=== PATIENT | male | born 1935 | race Caucasian/White ===

== ENCOUNTER → 2016-06-23 | Outpatient (CLI) | payer BC ==
[~2016-06-23] MED LIST: ASPI81TA28 PO; CEPH500C PO; HYDR12.55 PO; LISI-725 PO; TRAM-10 PO; XRL10 PO
--- NOTE | 2016-06-23 12:28 | DIAGNOSTIC IMAGING REPORT ---
RIGHT HEEL MIN 2 VIEWS CLINICAL HISTORY: Right heel pain COMPARISON: None. DISCUSSION: No fractures are visualized. No destructive lesions are evident. There is a tiny plantar calcaneal spur. There are vascular calcifications present. IMPRESSION: No evidence of fracture. Tiny plantar calcaneal spur. Electronically signed by: Taco Ryan M.D. 06/23/2016 12:26 PM Dictated Date/Time: 06/23/2016 12:26 PM
== END | disposition home or self-care (01) ==
LOC: C.RADBC 12:10
PROVIDERS: ATTEND Nurse Practitioner Family
DX: M77.31 Calcaneal spur, right foot (principal)

== ENCOUNTER 2016-12-12 17:38 | Emergency (ER) | payer BC ==
[~2016-12-12] VITALS: Ht 182.9 cm; Wt 83.6 kg
[~2016-12-12 17:38] MED LIST changes: -CEPH500C PO
[2016-12-12 17:48] VITALS: TEMP 36.7; Ht 182.9 cm; Wt 83.6 kg
[2016-12-12] MEDS ORDERED: XYLOCAINE 1%/SOD BICARB 20 ML VIAL INFIL STA (18:36)
[2016-12-12] MEDS ORDERED: HYDROCODONE/ACETAMOPHEN 5/325MG TAB PO STA (18:36)
--- NOTE | 2016-12-12 19:14 | DIAGNOSTIC IMAGING REPORT ---
LEFT INDEX FINGER 3 VIEWS CLINICAL HISTORY: Left 2nd finger trauma PAIN. COMPARISON: None. DISCUSSION: There is an intra-articular fracture involving the radial base the proximal phalanx. The fracture fragment measures 7 mm and is essentially nondisplaced. There is overlying soft tissue laceration. There are moderate arthritic changes at the level of the proximal to phalangeal joint. There is a 4 mm foreign body located within the volar soft tissues at the level of the second metacarpal. IMPRESSION: 1. Acute intra-articular fracture involving the base of the proximal phalanx 2. Overlying soft tissue laceration 3. Arthritic changes the level the proximal to phalangeal joint 4. 4 mm foreign body located anterior to the second metacarpal Electronically signed by: Taco Ryan M.D. 12/12/2016 7:13 PM Dictated Date/Time: 12/12/2016 7:10 PM
[2016-12-12] MEDS ORDERED: CEFAZOLIN SOD 1000MG/55 ML D5W IV STA (19:20)
[2016-12-12 19:50] LABS: ISTAT CREATININE 1.1 mg/dl (0.6-1.3); ISTAT IONIZED CALCIUM 1.14 mmol/l (1.12-1.32)
--- NOTE | 2016-12-12 20:22 | EMERGENCY ROOM VISIT NOTE ---
ED Visit Note First contact with patient: 18:31 This Patient was discussed with the physician Weighter, Michele Manuel PA-C. The pertinent historical and physical exam findings were confirmed. I agree with the studies ordered and with the interpretations of these studies. I agree with the disposition and care plan.
[2016-12-12] MEDS ORDERED: CEPH500C PO (20:23)
--- NOTE | 2016-12-12 20:24 | EMERGENCY ROOM VISIT NOTE ---
ED Visit Note First contact with patient: 18:31 Chief Complaint: "Laceration left index finger". History of Present Illness: This patient is a 80-year-old male who presents to the Emergency Department via private vehicle for evaluation of their left second digit laceration. Patient sustained the laceration while attending to operate a crossbow, when his finger was underneath the string when it discharged and struck and lacerated the dorsal aspect of his left second digit just distal to the MCP joint. They report a moderate amount of bleeding initially. They deny any numbness or tingling into the distal extremity. They report some decreased range of motion of the affected digit, with clicking at the PIP joint. Patient rates his current discomfort as a 4/10. Patient's Tetanus status is believed to be currently up-to-date. Medications: As noted below Allergies: None PMH: No pertinent SHx: Patient lives locally with . ROS: All pertinent positive and negative review of systems are appropriately documented in the History of Present Illness. Physical Exam: VITAL SIGNS - Vital signs and nursing notes were reviewed. Stable. Slightly hypertensive. I believe secondary to pain. GENERAL -80-year-old male appearing his stated age who is in no acute distress. Communicates well with provider and answers questions appropriately. SKIN - There is a 3 cm long laceration noted dorsal aspect of the left second digit between the MCP and PIP joint. The edges gape apart with traction. No foreign bodies appreciated. Upon further examination there are deep structures including vessel, tendon, and bony structures appreciated. The tendon for the extensor surface of the left second digit is visible between the PIP and MCP joints. This appears to move freely without laceration. There is no active bleeding noted. MUSCULOSKELETAL - Laceration as described above. +5/5 strength appreciated of the affected digit. There is some clicking noted with flexion of the left second digit at the PIP joint. He is able to fully extend. NEUROLOGIC - Spinothalamic tract was found to be intact with ability to discriminate sharp versus dull sensation. No sensory defects of the dorsal column were appreciated utilizing light touch for evaluation. VASCULAR - Capillary refill was brisk. IMAGING: LEFT INDEX FINGER 3 VIEWS CLINICAL HISTORY: Left 2nd finger trauma PAIN. COMPARISON: None. DISCUSSION: There is an intra-articular fracture involving the radial base the proximal phalanx. The fracture fragment measures 7 mm and is essentially nondisplaced. There is overlying soft tissue laceration. There are moderate arthritic changes at the level of the proximal to phalangeal joint. There is a 4 mm foreign body located within the volar soft tissues at the level of the second metacarpal. IMPRESSION: 1. Acute intra-articular fracture involving the base of the proximal phalanx 2. Overlying soft tissue laceration 3. Arthritic changes the level the proximal to phalangeal joint 4. 4 mm foreign body located anterior to the second metacarpal Electronically signed by: Taco Ryan M.D. 12/12/2016 7:13 PM Dictated Date/Time: 12/12/2016 7:10 PM ED Course: Patient was seen and evaluated by myself. Risks and benefits of performing primary wound closure versus no repair were discussed with the patient who verbalizes understanding. Verbal consent was obtained prior to performing the procedure. 6 cc of 1% buffered lidocaine was used to perform local anesthetization of the left second digit. The wound was cleansed and prepped in the typical sterile fashion utilizing normal saline and Betadine. The wound was sterilely draped. Once proper anesthetization was established, the wound was further examined and demonstrated deep involvement. X-ray was obtained with results as above. Acute fracture noted. I discussed the case with on-call orthopedics, Dr. Tidwell. We initiated 1 g of Ancef, and he recommended being discharged home on Keflex 5 days. Splint was recommended. He is to follow-up with Dr. Tidwell by calling the office tomorrow and be seen likely sometime near Sunday. I did discuss with him the clicking in the patient's joint. The extensor tendon does not appear to be lacerated and he was able to fully extend , flexion was slightly difficult. Foreign body noted on x-ray, and I thoroughly irrigated the wound and was unable to identify on exam any foreign body within the wound. The wound was copiously irrigated with normal saline and Betadine. The wound was closed using 7 simple, 5-0 nylon sutures with the wound edges being well approximated. Patient tolerated the procedure well. Patient's lab does reveal elevated BUN 21, he is to follow up regarding this. No complications were met. The wound was cleansed and dressed with a Bacitracin dressing. A metal splint was applied to the finger for comfort. Keflex prescription written. Patient educated on worrisome symptoms for return visit to the Emergency Department. Patient discharged to home in good condition. Medication list reviewed. Blood pressure elevated, I believe to be situational. In the evaluation and treatment of this patient, the following differential diagnoses were considered: Finger Fracture, Finger Dislocation, Finger Sprain, Finger Contusion, Jersey Finger, or Mallet Finger. Pt. was called in the afternoon on 12/13/16 to clarify typographical air in his discharge instructions. I indicated in this that 7 days is how long he is to wait to have these removed. This was clarified to wait 12-14 days. Thorough discussion was also had regarding the small foreign body that was identified on xray, but not appreciated on exam. He is to discuss this with the orthopedic surgeon on his visit that he has Sunday. Problem List Medical Problems: (1) HTN (hypertension) Status: Chronic Current/Historical Medications Scheduled Aspirin (Aspirin Ec), 81 MG PO DAILY Cephalexin Monohydrate (Keflex), 500 MG PO QID Hydrochlorothiazide (Hydrochlorothiazide), 12.5 MG PO DAILY Lisinopril (Zestril), 20 MG PO DAILY Allergies Coded Allergies: No Known Allergies (Unverified , 12/12/16) Vital Signs Date Time Temp Pulse Resp B/P (MAP) Pulse Ox O2 Delivery O2 Flow Rate FiO2 12/12/16 20:35 60 18 153/92 95 12/12/16 18:54 64 18 162/94 95 Room Air 12/12/16 17:48 36.7 75 18 149/84 96 Room Air Laboratory Results Test 12/12/16 19:31 Bedside Hemoglobin 15.0 g/dl (14.0-18.0) Bedside Hematocrit 44 % (42-52) Bedside Sodium 135 mEq/L (135-144) Bedside Potassium 3.8 mEq/L (3.3-5.0) Bedside Chloride 96 mEq/L (101-112) Bedside Total CO2 24 mEq/l (24-31) Anion Gap 19.0 mmol/L (16-25) Bedside Blood Urea Nitrogen 21 mg/dl (7-18) Bedside Creatinine 1.1 mg/dl (0.6-1.3) Bedside Glucose (other) 92 mg/dl (70-99) Bedside Ionized Calcium (Harman) 1.14 mmol/l (1.12-1.32) Medications Administered Medications (Trade) Dose Ordered Sig/Phillip Route Start Time Stop Time Status Last Admin Dose Admin Acetaminophen/ Hydrocodone Bitart ([place] 5/325 Tab) 1 tab NOW STAT PO 12/12/16 18:36 12/12/16 18:39 DC 12/12/16 18:53 1 TAB Cefazolin Sodium (Ancef 1000mg/55 ml D5W) 1,000 mg NOW STAT IV 12/12/16 19:20 12/12/16 19:21 DC 12/12/16 19:38 1,000 MG Departure Information Impression Primary Impression: Laceration Additional Impression: Finger fracture, left Dispostion Home / Self-Care Condition GOOD Prescriptions Cephalexin Monohydrate (Keflex) 500 Mg Cap 500 MG PO QID for 5 Days, #20 CAP Prov: Michele Manuel PA-C 12/12/16 Referrals Terrell Dupree M.D. (PCP) Jono Tidwell M.D. Patient Instructions My [facility] Additional Instructions Discharge Instructions: You have received 7 sutures on your finger. These sutures are NOT dissolvable and WILL need to be removed by a health care provider in 7 days. You can return to the Emergency Department or contact your Primary Care Provider to have the sutures removed. Please wear the splint for comfort until the sutures are removed. Please follow-up with Dr. Tidwell, by calling his office tomorrow. Proper wound care is essential for adequate wound healing and infection prevention. You can shower and clean the wound with soap and water. Do not scour over the wound, pat dry with a towel. Do not submerse the wound (i.e. bathe or dish wash) until the sutures have been removed. You can use an antibiotic ointment with a dressing over the wound for the next 3-4 days. After this time you may leave the wound dry and open to the air. If crust develops over the wound you can use a Q-tip to apply a 1:1 peroxide:water solution to clean the wound. Look for signs of infection of the wound including: increased pain, swelling, foul discharge, streaking, or increased temperature. If any of these are noticed you should return to the Emergency Department for further assessment and treatment. As with any laceration you may have received nerve damage to the surrounding tissues. This damage may or may not be permanent. You should keep the area covered with sunscreen for the first 6 months to 1 year when at risk for exposure to help minimize scarring. You can also use scar reducing creams or Vitamin E oil to help minimize scarring. For pain control, you can use the following [id number] medicines (if >12 yo): - Regular strength (325mg/tab) Tylenol (acetaminophen) 2 tabs every 4-6 hours as needed. Do not exceed 12 tablets in a 24 hour period. Avoid taking more than 3 grams (3000 mg) of Tylenol per day. This includes any other sources of acetaminophen you may take on a regular basis. - Regular strength (200 mg/tab) Advil (ibuprofen) 1-2 tabs every 4-6 hours as needed. Do not exceed a dose of 3200 mg per day. Return to the emergency department if your symptoms worsen despite treatment course outlined above. Please return with any new/concerning symptoms. Problem Qualifiers
[2016-12-12 20:35] VITALS: BP 153/92; PULSE 60; O2SAT 95
== END 2016-12-12 20:35 | disposition home or self-care (01) ==
LOC: C.EDB 17:39 → C.EDD 20:35
DX: S61.211A Laceration without foreign body of left index finger without damage to nail, initial encounter (principal); X58.XXXA Exposure to other specified factors, initial encounter; I10 Essential (primary) hypertension; Z79.82 Long term (current) use of aspirin

== ENCOUNTER → 2017-02-12 | Outpatient (CLI) | payer BC ==
[~2017-02-12] MED LIST changes: -TRAM-10 PO; -XRL10 PO
--- NOTE | 2017-02-12 14:47 | DIAGNOSTIC IMAGING REPORT ---
CHEST 2 VIEWS ROUTINE CLINICAL HISTORY: 81 years-old Male presenting with COUGH. TECHNIQUE: PA and lateral views of the chest were obtained. COMPARISON: Chest CT from 05/10/2014. FINDINGS: Atherosclerosis of aortic arch. Cardiac silhouette normal in size. Lungs and pleural spaces clear. Degenerative changes of the thoracic spine. Upper abdomen normal. IMPRESSION: 1. No acute cardiopulmonary disease. Electronically signed by: Perez Orourke M.D. 02/12/2017 2:46 PM Dictated Date/Time: 02/12/2017 2:45 PM
== END | disposition home or self-care (01) ==
LOC: C.RADBC 14:33
PROVIDERS: ATTEND Student in an Organized Health Care Education/Training Program
DX: R05 Cough (principal)

== ENCOUNTER → 2017-05-17 | Outpatient (CLI) | payer BC | END | disposition home or self-care (01) | LOC: C.PATHSPEC 16:49 | PROVIDERS: ATTEND Physician Assistant | DX: L81.4 Other melanin hyperpigmentation (principal); L57.0 Actinic keratosis ==